=== PATIENT | female | born 1985 | race Caucasian/White ===

== ENCOUNTER 2020-05-04 19:23 | Emergency (ER) | payer MEDICAID ==
[~2020-05-04] VITALS: Ht 152.4 cm; Wt 67.6 kg
[2020-05-04 21:30] VITALS: BP 107/72
== END 2020-05-04 21:30 | disposition home or self-care (01) ==
LOC: ER 19:33
DX: G51.0 Bell's palsy (principal); J45.909 Unspecified asthma, uncomplicated
CPT/HCPCS: 99281; 99283